=== PATIENT | female | born 1965 | race Caucasian/White ===

== ENCOUNTER 2017-09-27 10:51 | Outpatient (CLI) | payer OTHER ==
--- NOTE | 2017-10-03 14:26 | MMO ---
BILATERAL SCREENING MAMMOGRAM: Date: 09/27/17 HISTORY: 52-year-old female. Routine screening mammography. COMPARISON: 08/25/16, 08/08/15, 07/28/14. TECHNIQUE: CC and MLO views of both breasts are submitted for interpretation. This patient's mammogram was reviewed with the assistance of computer-aided detection. FINDINGS: The breasts are composed of scattered fibroglandular tissue. Bilaterally, no suspicious dominant mass , architectural distortion, or suspicious calcifications. IMPRESSION: BIRADS 1: Negative RECOMMENDATION: Annual mammogram. POS: TRAVON
== END 2017-09-27 10:52 | disposition home or self-care (01) ==
LOC: SCSMAMMO 10:51
PROVIDERS: ATTEND Obstetrics & Gynecology
DX: Z12.31 Encounter for screening mammogram for malignant neoplasm of breast (principal)
CPT/HCPCS: 77067; G0202

== ENCOUNTER 2019-02-25 12:46 | Outpatient (CLI) | payer OTHER ==
--- NOTE | 2019-02-25 14:24 | MMO ---
Bilateral MAMMO Bilat Screen [facility]. CLINICAL HISTORY: Patient is 54 years old and is seen for screening. The patient has the following family history of breast cancer: paternal aunt. The patient has no personal history of cancer. VIEWS: The views performed were: bilateral craniocaudal with tomosynthesis and bilateral mediolateral oblique with tomosynthesis. FILMS COMPARED: The present examination has been compared to prior imaging studies performed at [facility] on 11/05/2012, 07/28/2014, 08/08/2015, 08/25/2016 and 09/27/2017. MAMMOGRAM FINDINGS: There are scattered fibroglandular densities. There are no suspicious masses, suspicious calcifications, or new areas of architectural distortion. IMPRESSION: THERE IS NO MAMMOGRAPHIC EVIDENCE OF MALIGNANCY. A ROUTINE FOLLOW-UP MAMMOGRAM IN 1 YEAR IS RECOMMENDED. THE RESULTS OF THIS EXAM WERE SENT TO THE PATIENT. ACR BI-RADS Category 1 - Negative MAMMOGRAPHY NOTE: 1. A negative mammogram report should not delay a biopsy if a dominant of clinically suspicious mass is present. 2. Approximately 10% to 15% of breast cancers are not detected by mammography. 3. Adenosis and dense breasts may obscure an underlying neoplasm.
== END 2019-02-25 12:47 | disposition home or self-care (01) ==
LOC: BICMAMMO 12:46
PROVIDERS: ATTEND Obstetrics & Gynecology
DX: Z12.31 Encounter for screening mammogram for malignant neoplasm of breast (principal); Z80.3 Family history of malignant neoplasm of breast
CPT/HCPCS: 77063; 77067